=== PATIENT | male | born 1965 | race Caucasian/White ===

== ENCOUNTER 2020-02-15 13:21 | Emergency (ER) | payer MEDICAID ==
[~2020-02-15] VITALS: Ht 177.8 cm; Wt 77.3 kg
[2020-02-15 13:34] VITALS: Ht 177.8 cm; Wt 77.3 kg
[2020-02-15] MEDS ORDERED: AMOXICILLIN500 M1 PO (13:46)
[2020-02-15] MEDS ORDERED: TYLENOL W/CODEI1 TAB PO (13:46)
[2020-02-15 14:01] VITALS: BP 136/78
== END 2020-02-15 14:01 | disposition home or self-care (01) ==
LOC: D.ER 13:21
DX: K02.9 Dental caries, unspecified (principal); K08.89 Other specified disorders of teeth and supporting structures; Z72.0 Tobacco use

== ENCOUNTER 2020-03-06 10:05 | Emergency (ER) | payer MEDICAID ==
[~2020-03-06] VITALS: Ht 177.8 cm; Wt 84.1 kg
[~2020-03-06 10:05] MED LIST: AMOXICILLIN500 M1 PO; TYLENOL W/CODEI1 TAB PO
[2020-03-06 10:18] VITALS: Ht 177.8 cm; Wt 84.1 kg
[2020-03-06 10:48] LABS: BASOPHILS 0.2 % (0-2); EOSINOPHILS 0.4 % (0-7); HEMATOCRIT 44.1 % (42.0-54.0); HEMOGLOBIN 14.5 g/dL (13.5-17.5); IMMATURE GRANULOCYTES 0.2 % (0-5); LYMPHOCYTES 9.5 % (15-50); MCH 30.3 pg (26.0-34.0); MCHC 32.9 g/dL (31.0-37.0); MCV 92.3 fL (80.0-100.0); MEAN PLATELET VOLUME 9.5 fL (7.4-10.4); MONOCYTES 7.6 % (2-11); NEUTROPHILS 82.1 % (40-80); PLATELET COUNT 280 10x3/uL (130-400); RBC 4.78 10x6/uL (4.20-6.10); RDW 13.1 % (11.5-14.5); WBC 12.5 10x3/uL (4.8-10.8)
[2020-03-06 10:56] LABS: CALC OSMOLALITY 281 mosm/kg (275-300); CALCIUM 8.2 mg/dL (8.5-10.1); CARBON DIOXIDE 30.3 mmol/L (21.0-32.0); CHLORIDE - SERUM 105 mmol/L (98-107); CREATININE - SERUM 0.9 mg/dL (0.6-1.3); GLUCOSE 115 mg/dL (74-106); SODIUM 141 mmol/L (136-145); UREA NITROGEN 12 mg/dL (7-18); eGFR NON AFRICAN AMERICAN > 90 mL/min (90-120)
[2020-03-06 11:01] LABS: ALBUMIN 3.6 g/dL (3.4-5.0); ALKALINE PHOSPHATASE 116 U/L (30-120); ALT (SGPT) 52 U/L (10-68); BILIRUBIN - TOTAL 0.33 mg/dL (0.2-1.3); PROTEIN - SERUM 7.7 g/dL (6.4-8.2)
[2020-03-06 11:33] LABS: APTT 28.9 SECONDS (22.8-39.4); INR 0.96 (0.85-1.17); PROTIME 12.7 SECONDS (11.6-15.0)
[2020-03-06 11:43] LABS: PRO BNP 41 pg/mL (0-125); TROPONIN-I < 0.017 ng/mL (0.000-0.060)
[2020-03-06 12:24] VITALS: BP 158/92
== END 2020-03-06 12:25 | disposition home or self-care (01) ==
LOC: D.ER 10:05
PROVIDERS: Family Medicine
DX: R05 Cough (principal); J34.89 Other specified disorders of nose and nasal sinuses; J06.9 Acute upper respiratory infection, unspecified